=== PATIENT | female | born 1960 | race Caucasian/White ===

== ENCOUNTER 2017-05-08 11:45 | Outpatient (CLI) ==
[2017-05-08 13:21] LABS: EOSINOPHILS # (AUTO) 0.2 K/ul (0.0-0.7); EOSINOPHILS % (AUTO) 5.3 % (0.0-7.0); HEMATOCRIT 38.3 % (37.0-47.0); HEMOGLOBIN 12.9 g/dl (12.0-16.0); IMMATURE GRANULOCYTE % (AUTO) 0.2 % (0.0-5.0); LYMPHOCYTES # (AUTO) 1.7 K/uL (0.60-3.4); LYMPHOCYTES % (AUTO) 41.2 (10.0-50.0); MEAN CORPUSCULAR HEMOGLOBIN 28.9 pg (27.0-31.0); MEAN CORPUSCULAR HGB CONC 33.7 (31.8-35.4); MEAN CORPUSCULAR VOLUME 85.7 fl (81.0-99.0); MONOCYTES # (AUTO) 0.3 K/uL (0.4-2.0); MONOCYTES % (AUTO) 7.4 (0-10); NEUTROPHILS # (AUTO) 1.9 K/ul (2.0-6.9); NEUTROPHILS % (AUTO) 44.9; PLATELET COUNT 216 10^3/uL (140-440); RED BLOOD COUNT 4.47 10^6/ul (4.20-5.40); WHITE BLOOD COUNT 4.17 K/ul (4.6-10.2)
[2017-05-08 13:54] LABS: ALBUMIN 3.9 g/dL (3.4-5.0); BILIRUBIN,TOTAL 0.35 mg/dL (0.00-1.20); CREATININE 0.78 mg/dL (0.60-1.30); POTASSIUM 4.3 mmol/L (3.5-5.10); TOTAL PROTEIN 7.1 g/dL (6.4-8.2)
[2017-05-08 14:05] LABS: CHOL/HDL RATIO 4.3 (4.5-5.5)
[2017-05-08 18:00] LABS: ALBUMIN/GLOBULIN RATIO 1.22
[2017-05-08 18:02] LABS: BUN/CREATININE RATIO 15.4
[2017-05-08 18:09] LABS: ANION GAP 22.3
== END 2017-05-08 11:46 | disposition home or self-care (01) ==
LOC: LAB 11:45
PROVIDERS: ATTEND Emergency Medicine
DX: I10 Essential (primary) hypertension (principal); F33.1 Major depressive disorder, recurrent, moderate
CPT/HCPCS: 36415; 80053; 80061; 84443; 85025

== ENCOUNTER 2018-01-19 15:24 | Outpatient (CLI) | END 2018-01-19 15:25 | disposition home or self-care (01) | LOC: RHC-LAB 15:24 | PROVIDERS: ATTEND Emergency Medicine | DX: F33.1 Major depressive disorder, recurrent, moderate (principal); I10 Essential (primary) hypertension; M47.26 Other spondylosis with radiculopathy, lumbar region; E78.5 Hyperlipidemia, unspecified | CPT/HCPCS: 36415; 80053; 80061; 84443; 85025 ==

== ENCOUNTER 2019-06-23 10:25 | Outpatient (CLI) | END 2019-06-23 10:26 | disposition home or self-care (01) | LOC: RHC-LAB 10:25 | PROVIDERS: ATTEND Nurse Practitioner Family | DX: R00.2 Palpitations (principal); R06.02 Shortness of breath; I10 Essential (primary) hypertension; F41.1 Generalized anxiety disorder; F33.1 Major depressive disorder, recurrent, moderate; M79.89 Other specified soft tissue disorders; R05 Cough | CPT/HCPCS: 36415; 80053; 80061; 83880; 84443; 85025 ==

== ENCOUNTER 2019-06-27 13:10 | Outpatient (CLI) | END 2019-06-27 13:11 | disposition home or self-care (01) | LOC: RAD 13:10 | PROVIDERS: ATTEND Nurse Practitioner Family | DX: Z12.31 Encounter for screening mammogram for malignant neoplasm of breast (principal) ==